=== PATIENT | female | born 1965 | race Two or more races ===

== ENCOUNTER 2024-04-24 23:12 | Emergency (ER) | payer OTHER ==
[2024-04-24 23:40] VITALS: BMI 27.8
[2024-04-25 01:00] LABS: EOS % 2.6 % (0-4.5); HEMATOCRIT 37.4 % (32.4-45.2); HEMOGLOBIN 12.3 GM/dL (10.7-15.3); LYMPH % 43.5 % (8-40); MCH 24.5 pg (25.7-33.7); MEAN CELL VOLUME 74.5 fl (80-96); MEAN PLT VOLUME 7.2 fl (7.5-11.1); MONO % 10.1 % (3.8-10.2); NEUT % 42.8 % (42.8-82.8); PLATELET COUNT 460 10^3/uL (134-434); RBC 5.02 M/mm3 (3.60-5.2); RDW 15.2 % (11.6-15.6); WHITE BLOOD COUNT 4.8 K/mm3 (4.0-10.0)
[2024-04-25 01:32] VITALS: TEMP 98.4
[2024-04-25 02:21] LABS: URINE APPEARANCE CLEAR; URINE BILIRUBIN NEGATIVE (NEGATIVE); URINE COLOR YELLOW; URINE GLUCOSE (UA) NEGATIVE (NEGATIVE); URINE KETONE NEGATIVE (NEGATIVE); URINE LEUK ESTERASE NEGATIVE (NEGATIVE); URINE NITRITE NEGATIVE (NEGATIVE); URINE PROTEIN NEGATIVE (NEGATIVE); URINE UROBILINOGEN 0.2 mg/dL (0.2-1.0)
[2024-04-25 02:52] VITALS: RESP 16
[2024-04-25 04:01] LABS: POTASSIUM 3.6 mmol/L (3.5-5.1)
[2024-04-25 04:04] LABS: CALCIUM 9.4 mg/dL (8.5-10.1)
[2024-04-25 04:05] LABS: ALBUMIN 3.8 g/dl (3.4-5.0); BLOOD UREA NITROGEN 15.2 mg/dL (7-18)
[2024-04-25 04:08] LABS: BILIRUBIN,TOTAL 0.6 mg/dL (0.2-1); CREATININE 0.9 mg/dL (0.55-1.3); TOT PROT 8.2 g/dl (6.4-8.2)
[2024-04-25 05:00] VITALS: BP 152/94; PULSE 65
== END 2024-04-25 05:14 | disposition home or self-care (01) ==
LOC: JER 23:12
DX: I10 Essential (primary) hypertension (principal)
CPT/HCPCS: 36415; 80053; 81003; 85025; 87086; 93005; 93010; 99284-25